=== PATIENT | female | born 1965 | race Hispanic/Latino ===

== ENCOUNTER → 2017-06-18 | Outpatient (CLI) | payer OTHER ==
[~2017-06-18] MED LIST: ASPIR 8181 MG PO; CEPHALEXIN500 MG PO; DILANTIN100 MG PO; DIOVAN160 MG PO; LORAZEPAM INJ 2 MG/ML VIAL ONE; MECLIZINE HCL12.5 MG PO; PREDNISONE10 MG PO
== END ==
LOC: MRI 05-25 13:46
PROVIDERS: ATTEND Emergency Medicine
DX: M47.22 Other spondylosis with radiculopathy, cervical region (principal); M25.512 Pain in left shoulder; M79.2 Neuralgia and neuritis, unspecified
CPT/HCPCS: J2060

== ENCOUNTER 2017-08-02 14:20 | Emergency (ER) | payer SELFPAY ==
[~2017-08-02] VITALS: Ht 162.6 cm; Wt 81.6 kg
[~2017-08-02 14:20] MED LIST changes: -LORAZEPAM INJ 2 MG/ML VIAL ONE
--- OUTSIDE RECORDS SUMMARY | 2017-08-02 14:22 | XMS REPORT ---
Author Author [facility] Address Unknown Phone Unavailable Care Team Providers Care Ditch Worker Name Role Phone Unavailable Unavailable Problems This patient has no known problems. Allergies, Adverse Reactions, Alerts This patient has no known allergies or adverse reactions. Medications This patient has no known medications. Encounters Start Date/Time End Date/Time Encounter Type Admission Type Attending [facility] Care Department Encounter ID 2017-08-03 00:00:00 2017-08-03 00:00:00 Outpatient [facility] [id number] 2017-07-24 15:23:17 2017-07-24 15:23:17 Outpatient [facility] [id number] 2017-07-24 13:44:01 2017-07-24 13:44:01 Outpatient [facility] [id number] 2017-07-24 00:00:00 2017-07-24 00:00:00 Outpatient [facility] [id number] 2017-07-16 00:00:00 2017-07-16 00:00:00 Outpatient [facility] [id number] 2017-07-01 00:00:00 2017-07-01 00:00:00 Outpatient [facility] [id number] 2017-06-26 00:00:00 2017-06-26 00:00:00 Outpatient [facility] [id number] 2017-06-25 00:00:00 2017-06-25 00:00:00 Outpatient [facility] [id number] 2017-06-19 00:00:00 2017-06-19 00:00:00 Outpatient [facility] [id number] 2017-06-15 00:00:00 2017-06-15 00:00:00 Outpatient [facility] [id number] 2017-05-28 00:00:00 2017-05-28 00:00:00 Outpatient [facility] [id number] 2017-05-27 00:00:00 2017-05-27 00:00:00 Outpatient [facility] [id number] 2017-05-25 00:00:00 2017-05-25 00:00:00 Outpatient [facility] [id number] 2017-05-20 11:02:36 2017-05-20 11:02:36 Outpatient [facility] [id number] 2017-05-18 00:00:00 2017-05-18 00:00:00 Outpatient [facility] [id number] 2017-05-18 00:00:00 2017-05-18 00:00:00 Outpatient [facility] [id number] 2017-04-29 00:00:00 2017-04-29 00:00:00 Outpatient [facility] [id number] 2017-04-27 00:00:00 2017-04-27 00:00:00 Outpatient [facility] [id number] 2017-04-17 10:06:17 2017-04-17 10:06:17 Outpatient [facility] [id number] 2017-04-14 13:30:33 2017-04-14 13:30:33 Outpatient [facility] [id number] 2017-04-13 00:00:00 2017-04-13 00:00:00 Outpatient [facility] [id number] 2017-04-10 10:18:48 2017-04-10 10:18:48 Outpatient [facility] [id number] 2017-04-10 00:00:00 2017-04-10 00:00:00 Outpatient [facility] [id number] 2017-03-27 08:06:50 2017-03-27 08:06:50 Outpatient [facility] [id number] 2017-03-26 11:00:14 2017-03-26 11:00:14 Outpatient [facility] [id number] 2017-03-10 08:27:57 2017-03-10 08:27:57 Outpatient [facility] [id number] 2017-03-09 08:42:11 2017-03-09 08:42:11 Outpatient [facility] [id number] 2017-03-05 00:00:00 2017-03-05 00:00:00 Outpatient [facility] [id number] 2016-12-04 00:00:00 2016-12-04 00:00:00 Outpatient [facility] [id number] 2016-11-06 08:52:36 2016-11-06 08:52:36 Outpatient [facility] [id number] 2016-11-05 10:06:47 2016-11-05 10:06:47 Outpatient [facility] [id number] 2016-11-05 00:00:00 2016-11-05 00:00:00 Outpatient [facility] [id number] 2016-10-20 14:20:43 2016-10-20 14:20:43 Outpatient [facility] [id number] 2016-09-23 13:21:17 2016-09-23 13:21:17 Outpatient [facility] [id number] 2016-09-10 12:02:21 2016-09-10 12:02:21 Outpatient [facility] [id number] 2016-08-26 08:12:40 2016-08-26 08:12:40 Outpatient [facility] [id number] 2016-08-26 00:00:00 2016-08-26 00:00:00 Outpatient [facility] [id number] 2016-08-15 09:23:28 2016-08-15 09:23:28 Outpatient [facility] [id number] 2016-08-15 07:30:23 2016-08-15 07:30:23 Outpatient [facility] [id number] 2016-08-12 14:46:20 2016-08-12 14:46:20 Outpatient [facility] [id number] 2016-08-08 10:53:13 2016-08-08 10:53:13 Outpatient [facility] [id number] 2016-08-08 00:00:00 2016-08-08 00:00:00 Outpatient [facility] [id number] 2016-07-31 08:09:44 2016-07-31 08:09:44 Outpatient [facility] [id number] 2016-07-08 07:28:39 2016-07-08 07:28:39 Outpatient [facility] [id number] 2016-07-03 09:01:52 2016-07-03 09:01:52 Outpatient [facility] [id number] 2016-07-03 06:26:55 2016-07-03 06:26:55 Outpatient [facility] [id number] 2016-07-02 14:29:33 2016-07-02 14:29:33 Outpatient [facility] [id number] 2016-07-02 14:23:52 2016-07-02 14:23:52 Outpatient [facility] [id number] 2016-07-02 13:15:16 2016-07-02 13:15:16 Outpatient [facility] [id number] 2016-07-01 14:55:04 2016-07-01 14:55:04 Outpatient [facility] [id number]
[2017-08-02] MEDS ORDERED: PROMETHAZINE HCL (IM) 25 MG/ML VIAL IM ONE (16:15)
[2017-08-02] MEDS ORDERED: SODIUM CHLORIDE 0.9% 1000ML 1,000 ML ONE (16:15)
[2017-08-02] MEDS ORDERED: KETOROLAC TROMETHAMINE 30 MG/ML VIAL IV ONE (17:00)
[2017-08-02] MEDS ORDERED: EPINEPHRIN0.3 MG/0.3 IM (18:17)
== END 2017-08-02 18:22 | disposition home or self-care (01) ==
LOC: FSED 14:20
DX: G43.009 Migraine without aura, not intractable, without status migrainosus (principal); N94.6 Dysmenorrhea, unspecified; N92.1 Excessive and frequent menstruation with irregular cycle
CPT/HCPCS: 99284; J1885; J2550; J7030

== ENCOUNTER → 2019-11-14 | Outpatient (CLI) | payer OTHER ==
[~2019-11-14] MED LIST changes: +EPINEPHRIN0.3 MG/0.3 IM
--- NOTE | 2019-11-14 16:33 | Diagnostic Imaging Report ---
Thyroid ultrasound. History: Right thyroid mass Comparison: None available. Discussion: Transverse and longitudinal images of the thyroid were obtained demonstrating diffusely heterogeneous echogenicity of the thyroid. The sizes of the lobes are normal with the right thyroid lobe measuring 4.1 x 1.3 x 1.6 cm and the left measuring 4.3 x 1.5 x 1.3 cm. The isthmus is within normal limits. Nodules: Right - 1.0 x 0.5 x 1.0 cm oval circumscribed mixed cystic solid nodule in the upper pole. 0.9 and 0.5 cm cysts are also noted in the lower pole. Left - 0.5 cm cyst in the interpolar region. IMPRESSION: 1 cm right thyroid nodule, TI-RADS 3, no follow-up recommended due to small size, and bilateral thyroid cysts, TI- RADS 1. Signed by: Piotr Marks on 11/14/2019 4:29 PM
== END ==
LOC: US 13:14
PROVIDERS: ATTEND Surgery
DX: R22.1 Localized swelling, mass and lump, neck (principal)
CPT/HCPCS: 76536

== ENCOUNTER → 2020-05-02 | Outpatient (CLI) | payer OTHER ==
--- NOTE | 2020-05-02 16:28 | Diagnostic Imaging Report ---
TECHNIQUE: Magnetic resonance imaging of the LEFT KNEE was performed WITHOUT injected contrast. HISTORY: Pain COMPARISON: None available. FINDINGS: LIGAMENTS AND TENDONS: ACL: Intact PCL: Intact Collateral ligaments: Intact Iliotibial band: Unremarkable Popliteal tendon: Intact Extensor mechanism: Intact Mild thickening and increased signal along the myotendinous junction of the medial head of the gastrocnemius muscle. Questionable partial avulsion from the femoral attachment site (series 3 image 26). JOINT: Menisci: Medial: Undersurface fraying at the body/posterior horn junction without discrete tear. Lateral: Intact Articular Cartilage: Medial Compartment: No focal defect. Lateral Compartment: No focal defect. Patellofemoral Compartment: No focal defect. Joint Fluid: The amount of fluid within the joint is within physiologic limits. BONE: No focal or infiltrative bone marrow replacing abnormality. No acute fracture. SOFT TISSUES: Otherwise, unremarkable. IMPRESSION: 1. Thickening and increased signal at the myotendinous junction of the medial head of the gastrocnemius muscle, concerning for low-grade strain with questionable partial avulsion from the femoral attachment site. 2. Undersurface fraying of the medial meniscus without discrete tear. 3. No additional meniscus, ligament, tendon, or cartilage abnormalities. Signed by: Dr. Moises Phillips M.D. on 05/02/2020 4:25 PM
== END ==
LOC: MRI 14:35
PROVIDERS: ATTEND Specialist
DX: S83.242A Other tear of medial meniscus, current injury, left knee, initial encounter (principal); S83.282A Other tear of lateral meniscus, current injury, left knee, initial encounter